=== PATIENT | male | born 1995 | race Caucasian/White ===

== ENCOUNTER → 2017-01-18 | Outpatient (CLI) | payer BC ==
[~2017-01-18] MED LIST: ALBUTEROL0.09 MG/A2 INH; AMOXICILLIN500 M3 PO; BENADRYL ALLERG25 M5 PO; CIPROFLOXACIN500 MG PO; Elocon 0.1% Cre15 GM T; KENALOG 0.1%80 GM PO; MOTRIN800 MG PO; PREDNISONE10 MG PO; TESSALON PERLE100 M1 PO; ZITHROMAX Z PA250 MG PO; ZOFRAN ODT4 MG SL
== END | disposition home or self-care (01) ==
LOC: RAD 12:08
DX: M25.562 Pain in left knee (principal); M25.462 Effusion, left knee

== ENCOUNTER → 2017-04-07 | Outpatient (CLI) | payer BC ==
[2017-04-07 12:00] LABS: SPERM MORPHOLOGY NORMAL FORMS >30 % (NORM >30)
== END | disposition home or self-care (01) ==
LOC: LAB 04-06 12:45
PROVIDERS: Family Medicine
DX: N46.9 Male infertility, unspecified (principal)

== ENCOUNTER 2017-04-23 06:47 | Emergency (ER) | payer BC ==
[~2017-04-23] VITALS: Ht 180.3 cm; Wt 112.5 kg
[2017-04-23] MEDS ORDERED: MELOXICAM7.5 MG PO (06:53)
[2017-04-23] MEDS ORDERED: IBU800 MG PO (08:38)
== END 2017-04-23 09:00 | disposition home or self-care (01) ==
LOC: ED 06:47
DX: H10.9 Unspecified conjunctivitis (principal)

== ENCOUNTER → 2020-07-10 | Outpatient (CLI) | payer OTHER ==
[~2020-07-10] MED LIST changes: +IBU800 MG PO; +MELOXICAM7.5 MG PO
== END | disposition home or self-care (01) ==
LOC: COVID19 00:11
PROVIDERS: ATTEND Family Medicine
DX: Z20.828 Contact with and (suspected) exposure to other viral communicable diseases (principal)

== ENCOUNTER → 2023-08-01 | Outpatient (CLI) | payer OTHER ==
[2023-08-01 12:22] LABS: BILIRUBIN Negative (Negative); BLOOD Negative (Negative); CLARITY Clear (Clear); COLOR Yellow (Yellow); GLUCOSE Negative (Negative); KETONE Negative (Negative); LEUKO ESTERASE Negative (Negative); NITRITE Negative (Negative); SPECIFIC GRAVITY 1.025 (1.001-1.030); UROBILINOGEN 0.2 E.U./dl (0.0-1.0)
[2023-08-01 12:33] LABS: BACTERIA TRACE; EPITHELIAL CELLS 0-2; MUCOUS 1+; RBC 0-2 rbc/hpf (0-2); WBC 0-2 wbc/hpf (0-5)
== END | disposition home or self-care (01) ==
LOC: LAB 11:55
PROVIDERS: ATTEND Urology
DX: Z30.2 Encounter for sterilization (principal); R82.90 Unspecified abnormal findings in urine